=== PATIENT | female | born 1960 | race Two or more races ===

== ENCOUNTER 2024-04-24 09:02 | Outpatient (AMB) | payer MEDICAID, SELFPAY ==
[2024-04-24 09:19] VITALS: BP 111/75; PULSE 74; RESP 18; TEMP 36.5; O2SAT 98; BMI 22.6
--- NOTE | 2024-04-24 09:19 | ORTHONT_ITS ---
Vital signs 04/24/24 09:19 Height 1.6 m Height Method Stated Weight 58.088 kg Weight Measurement Method Standing Scale BMI 22.6 BP 111/75 Blood Pressure Source Automatic Cuff Blood Pressure Location Right Upper Arm Position Sitting Respiration 18 Pulse 74 Pulse Source Monitor Temp 97.7 F Temp Source Temporal Artery Scan Pulse Oximetry (%) 98 Oxygen Delivery Method Room Air Med/Allergies Allergies & Medications Allergies No Known Drug Allergies Allergy (Verified 04/24/24 09:20) Medication Reconciliation Unobtainable 04/24/24 [History Confirmed 04/24/24] Subjective Visit Visit for: new patient, hip and knee Immunization / Flu Flu Vaccine in the Last 12 Months: No Flu Vaccine Exclusion Criteria: Refused by Patient History of Present Illness Chief complaint: HIP AND KNEE PAIN Patient is a pleasant 63-year-old female with bilateral knee pain. She had a history of a left total knee replacement 5 years ago. On the right she has right knee arthritis. She has had 3 injections in the past physical therapy, and ibuprofen. She is hesitant to get a right total knee replacement as her left side is still bothering her on the lateral aspect of her knee. The surgery was done by Dr. Freeman Personal History Occupation: RETIRED Red flag PMH: none Pain Pain level (0-10): 10 Pain duration: ALL DAY Pain location: inside (medial), outside (lateral), anterior and posterior Pain quality: sharp, dull and aching Pain timing: increases with activity Associated signs & symptoms: weakness Ambulatory data Ambulatory device: cane Treatments Improvement with previous injections: No Improvement with PT: No Improvement with NSAIDS: n/a Review of Systems Review of Systems: All systems negative unless otherwise noted in HPI. Exam Exam Patient is in no acute distress and is cooperative with the examination today. Patient has a normal mood and affect. Breathing is nonlabored. In no respiratory distress. Bilateral extremities were evaluated and demonstrates sensation intact to light touch. Palpable pedal pulses are present. No significant edema is present. Left knee is tender to palpation medially. She has left knee incision is clean dry intact. There is no pain with varus valgus stress today feels stable. R umbetro of motion is poor and is between 10 to 90 degrees Right knee is tender to palpation medially and laterally. Range of motion is 0 to 95 degrees Assessment and Plan Problem List (1) Arthritis of right knee: Status: Acute Plan: Patient is a 63-year-old female with right knee pain and right knee arthritis. She also has a painful left total knee replacement. I will start by getting x- rays and we can go from there. She does not want injections at this time. Office Procedures GNS Level of Care Nursing/Assessment Patient Status: Initial/New Patient Nursing Assessment/Reassesment: Medication Reconciliation, Update PMH in EMR and Vital Signs Coordination of Care: Complex Care and Chronic Disease 1-5, Education Complex Pt/Fam, Consent,records obtained, informed consent, Results/Orders obtained and Staff clarify orders Special Needs: Language special needs New Patient Charge New Patient Point Assignment: [id number] New Patient Point Charge: SOAP SLABBER Level 3 ([id number]) Past Medical History Past Medical History Have you ever been diagnosed with any of the following: Respiratory Problems Smoking: No Smoking Exposure: No
== END 2024-04-24 09:51 | disposition home or self-care (01) ==
LOC: HODSRG 09:02
PROVIDERS: PCP Family Medicine; Referring Provider Family Medicine; Supervising Provider Orthopaedic Surgery Adult Reconstructive Orthopaedic Surgery; Visit Provider Orthopaedic Surgery Adult Reconstructive Orthopaedic Surgery
DX: M17.11 Unilateral primary osteoarthritis, right knee (principal); M25.561 Pain in right knee; T84.84XD Pain due to internal orthopedic prosthetic devices, implants and grafts, subsequent encounter; Y84.9 Medical procedure, unspecified as the cause of abnormal reaction of the patient, or of later complication, without mention of misadventure at the time of the procedure
CPT/HCPCS: 99203; G0463

== ENCOUNTER 2024-05-25 09:35 | Outpatient (AMB) | payer MEDICAID, SELFPAY ==
[2024-05-25 10:06] VITALS: BP 150/89; PULSE 67; RESP 18; TEMP 36.6; O2SAT 98; BMI 23.0
--- NOTE | 2024-05-25 10:06 | PD.ORTHCLVIS ---
Vital signs 05/25/24 10:06 Height 1.6 m Height Method Stated Weight 58.995 kg Weight Measurement Method Standing Scale BMI 23.0 BP 150/89 H Blood Pressure Source Automatic Cuff Blood Pressure Location Right Upper Arm Position Sitting Respiration 18 Pulse 67 Pulse Source Monitor Temp 97.9 F Temp Source Temporal Artery Scan Pulse Oximetry (%) 98 Oxygen Delivery Method Room Air Med/Allergies Allergies & Medications Allergies No Known Drug Allergies Allergy (Verified 05/25/24 10:08) Medication Reconciliation Unobtainable 04/24/24 [History Confirmed 05/25/24] Subjective Visit Visit for: follow up visit, knee and x-rays Immunization / Flu Flu Vaccine in the Last 12 Months: Yes Flu Vaccine Exclusion Criteria: No Exclusion Criteria History of Present Illness Chief complaint: F/U XRAYS Patient is a pleasant 63-year-old female with bilateral knee pain. She had a history of a left total knee replacement 5 years ago. On the right she has right knee arthritis. She has had 3 injections in the past physical therapy, and ibuprofen. She is hesitant to get a right total knee replacement as her left side is still bothering her on the lateral aspect of her knee. The surgery was done by Dr. Freeman. For her left knee, she reports that significant instability. The knee replacement was done in 2018. The left knee bothers her more than the right. She had a right knee injection recently Personal History Occupation: RETIRED Red flag PMH: none Pain Pain level (0-10): 10 Pain duration: CONSTANT Pain location: inside (medial), outside (lateral), anterior and posterior Pain quality: sharp, dull and aching Pain timing: increases with activity Associated signs & symptoms: numbness, weakness and stiffness Ambulatory data Ambulatory device: none Treatments Improvement with previous injections: No Improvement with PT: No Improvement with NSAIDS: n/a Review of Systems Review of Systems: All systems negative unless otherwise noted in HPI. Exam Exam Patient is in no acute distress and is cooperative with the examination today. Patient has a normal mood and affect. Breathing is nonlabored. In no respiratory distress. Bilateral extremities were evaluated and demonstrates sensation intact to light touch. Palpable pedal pulses are present. No significant edema is present. Left knee is tender to palpation medially. She has left knee incision is clean dry intact. . Range of motion is poor and is between 10 to 90 degrees. There is greater than 5 mm of instability in the varus valgus plane. There is AP instability as well Right knee is tender to palpation medially and laterally. Range of motion is 0 to 95 degrees X-rays were personally reviewed by me today. This demonstrates Moderate right knee arthritis and joint space narrowing. For the left knee, there is a attune total knee replacement. There appears to be a radiolucent line on the medial aspect of the tibial baseplate. It is not circumferential. I cannot see this as well on the lateral view but is very apparent on the AP view. Assessment and Plan Problem List (1) Loosening of prosthesis of left total knee replacement: Status: Acute Plan: Patient is a 63-year-old female with a left knee pain and loosening of the left total knee replacement. There is also instability. She has right knee arthritis of moderate severity that we recommend continued conservative treatment. He had an injection 1 month ago and we will schedule for her an injection in 2 months. We discussed revision left total knee replacement due to instability and loosening of the left knee. She wants to think about this. We discussed the risk and benefits of this. Office Procedures GNS Level of Care Nursing/Assessment Patient Status: Established Patient Nursing Assessment/Reassesment: Medication Reconciliation, Update PMH in EMR and Vital Signs Coordination of Care: Complex Care and Chronic Disease 1-5, Education Complex Pt/Fam, Consent,records obtained, informed consent, Results/Orders obtained and Staff clarify orders Special Needs: Language special needs Established Patient Charge Established Patient Point Assignment: 95 Established Patient Point Charge: EP Level 3 (80-115) Past Medical History Past Medical History Have you ever been diagnosed with any of the following: Respiratory Problems Smoking: No Smoking Exposure: No
== END 2024-05-25 10:33 | disposition home or self-care (01) ==
LOC: HODSRG 09:35
PROVIDERS: PCP Family Medicine; Referring Provider Family Medicine; Supervising Provider Orthopaedic Surgery Adult Reconstructive Orthopaedic Surgery; Visit Provider Orthopaedic Surgery Adult Reconstructive Orthopaedic Surgery
DX: T84.033D Mechanical loosening of internal left knee prosthetic joint, subsequent encounter (principal); Y84.9 Medical procedure, unspecified as the cause of abnormal reaction of the patient, or of later complication, without mention of misadventure at the time of the procedure; M25.562 Pain in left knee; M23.52 Chronic instability of knee, left knee; M17.11 Unilateral primary osteoarthritis, right knee
CPT/HCPCS: 99213; G0463

== ENCOUNTER 2024-09-04 09:06 | Outpatient (AMB) | payer MEDICAID, SELFPAY ==
--- NOTE | 2024-09-04 09:53 | ORTHONT_ITS ---
Vital signs 09/04/24 09:55 Height 1.6 m Height Method Stated Weight 58.74 kg Weight Measurement Method Standing Scale BMI 22.9 BP 111/73 Blood Pressure Source Automatic Cuff Blood Pressure Location Left Upper Arm Position Sitting Respiration 18 Pulse 68 Pulse Source Monitor Temp 97.5 F Temp Source Temporal Artery Scan Pulse Oximetry (%) 98 Oxygen Delivery Method Room Air Med/Allergies Allergies & Medications Allergies No Known Drug Allergies Allergy (Verified 09/04/24 09:56) Medication Reconciliation meloxicam 7.5 mg tablet 7.5 mg PO QDAY #45 tabs 09/04/24 [Rx] Exam Exam Patient is in no acute distress and is cooperative with the examination today. Patient has a normal mood and affect. Breathing is nonlabored. In no respiratory distress. Bilateral extremities were evaluated and demonstrates sensation intact to light touch. Palpable pedal pulses are present. No significant edema is present. Left knee is tender to palpation medially. She has left knee incision is clean dry intact. . Range of motion is poor and is between 10 to 90 degrees. There is greater than 5 mm of instability in the varus valgus plane. There is AP instability as well Right knee is tender to palpation medially and laterally. Range of motion is 0 to 95 degrees X-rays were personally reviewed by me today. This demonstrates Moderate right knee arthritis and joint space narrowing. For the left knee, there is a attune total knee replacement. There appears to be a radiolucent line on the medial aspect of the tibial baseplate. It is not circumferential. I cannot see this as well on the lateral view but is very apparent on the AP view. Assessment and Plan Problem List (1) Loosening of prosthesis of left total knee replacement: Status: Acute Plan: Patient is a 63-year-old female with a left knee pain. She has right knee arthritis of moderate severity that we recommend continued conservative treatment. She had great relief with a right knee injection in the past and would like a right knee injection today. Recommend knee cortisone injection as patient would like to proceed with conservative treatment at this time. The risks and benefits of the procedure were reviewed with the patient and patient gave verbal consent to continue with the procedure. Procedure: performed by Dr. Barbosa Using sterile technique the Right knee was thoroughly prepped with alcohol, and approximately 1 cc of Kenalog 40 mg/mL and 4 cc of 1% lidocaine was injected without resistance into the medial tibial femoral joint space. The patient tolerated the procedure. Office Procedures GNS Level of Care Nursing/Assessment Patient Status: Established Patient Nursing Assessment/Reassesment: Medication Reconciliation, Update PMH in EMR and Vital Signs Coordination of Care: Complex Care and Chronic Disease 1-5, Education Complex Pt/Fam, Consent,records obtained, informed consent, Results/Orders obtained and Staff clarify orders Established Patient Charge Established Patient Point Assignment: 95 Established Patient Point Charge: EP Level 3 (80-115) Surgical Proc/IM SQ injection Major Surgical Procedure: Yes (KNEE INJECTION) Medication Given Medication Given Medication Given: Yes Documented Dose Given: 4 Route: Infiitration Medication Given Medication Given Medication Given: Yes Documented Dose Given: 1 Route: Infiitration Office Meds Xylocaine 10 mg/mL (1 %) injection solution Performing Provider: Isidro Barbosa MD Performing Location: [facility] Administered by: Isidro Barbosa MD on 09/04/24 15:50 Dose Route Admin Location Dispensed Lot Number Expiration Date [facility] Product Tester Fiberg[employer] 20 mL Infiltration 20 mL [id number] 12/18/27 96298-038-03 [facility] triamcinolone acetonide 40 mg/mL suspension for injection Performing Provider: Isidro Barbosa MD Performing Location: [facility] Administered by: Isidro Barbosa MD on 09/04/24 15:50 Dose Route Admin Location Dispensed Lot Number Expiration Date [facility] Product Tester Fiberglass 40 mg intra-articular KNEE 1 mL [id number] 04/18/26 6537-2190-35 [facility] [place] Intake Visit Data Collection New Patient or Established: Established Patient (seen at [facility] within 3 years) Reason for Visit:: BILATERAL KNEE PAIN Seen by Clinical Staff ONLY (RN/MA): No Inspector Precision Required: Yes PCP or OBGYN visit in last 3 months: Yes Hx Now: No Do You Feel Safe at Home: Yes Authorities Contacted: N/A Questionairres Past Medical History Past Medical History Have you ever been diagnosed with any of the following: Respiratory Problems Smoking: No Smoking Exposure: No Subjective Visit Visit for: follow up visit and knee Immunization / Flu Flu Vaccine in the Last 12 Months: No Flu Vaccine Exclusion Criteria: No Exclusion Criteria History of Present Illness Chief complaint: bilateral knee pain Patient is a pleasant 63-year-old female with bilateral knee pain. She had a history of a left total knee replacement 5 years ago. On the right she has right knee arthritis. She has had 3 injections in the past. She is hesitant to get a right total knee replacement as her left side is still bothering her on the lateral aspect of her knee. The surgery was done by Dr. Freeman. For her left knee, she reports significant instability. The knee replacement was done in 2018. The left knee bothers her more than the right. We will rule out infection with ESR and CRP values as well Pain Pain level (0-10): 7 Pain duration: constant Pain location: inside (medial), outside (lateral) and anterior Pain quality: dull and aching Pain timing: increases with activity and stairs Associated signs & symptoms: weakness Ambulatory data Ambulatory device: none Treatments Improvement with previous injections: No Improvement with PT: No Improvement with NSAIDS: no Review of Systems Review of Systems: All systems negative unless otherwise noted in HPI.
[2024-09-04 09:55] VITALS: BP 111/73; PULSE 68; RESP 18; TEMP 36.4; O2SAT 98; BMI 22.9
--- NOTE | 2024-09-04 10:05 | XR_ITS ---
Examination: Bilateral knees single view AP lateral axial right knee 3 views TECHNIQUE: Bilateral AP knees standing single view Standing AP knee, flexion, right Standing lateral axial right knee 2 views total 4 views Exam date and time: September 04, 2024 1018 hours INDICATIONS: Right knee pain one year. FINDINGS: Significant osteopenia Moderate narrowing medial joint space Moderate narrowing lateral joint space Moderate osteoarthritis patellofemoral joint Total left knee arthroplasty with satisfactory alignment IMPRESSION: Moderate right knee tricompartment osteoarthritis
== END 2024-09-04 10:26 | disposition home or self-care (01) ==
LOC: HODSRG 09:06
PROVIDERS: Supervising Provider Orthopaedic Surgery Adult Reconstructive Orthopaedic Surgery; Visit Provider Orthopaedic Surgery Adult Reconstructive Orthopaedic Surgery
DX: M17.11 Unilateral primary osteoarthritis, right knee (principal); T84.033A Mechanical loosening of internal left knee prosthetic joint, initial encounter; X58.XXXA Exposure to other specified factors, initial encounter; Z96.652 Presence of left artificial knee joint
CPT/HCPCS: 20610; 73564; 99213; J3301; J3490; G0463

== ENCOUNTER 2024-12-06 09:02 | Outpatient (AMB) | payer MEDICAID, SELFPAY ==
[2024-12-06 09:48] VITALS: BP 127/79; PULSE 70; RESP 19; TEMP 36.6; O2SAT 100; BMI 23.6
--- NOTE | 2024-12-06 09:48 | PD.ORTHCLVIS ---
Vital signs 12/06/24 09:48 Height 1.6 m Height Method Stated Weight 60.47 kg Weight Measurement Method Standing Scale BMI 23.6 BP 127/79 Blood Pressure Source Automatic Cuff Blood Pressure Location Left Upper Arm Position Sitting Respiration 19 Pulse 70 Pulse Source Monitor Temp 97.8 F Temp Source Temporal Artery Scan Pulse Oximetry (%) 100 Oxygen Delivery Method Room Air Med/Allergies Allergies & Medications Allergies No Known Drug Allergies Allergy (Verified 12/06/24 09:48) Medication Reconciliation meloxicam 7.5 mg tablet 7.5 mg PO QDAY #45 tabs 09/04/24 [Rx Confirmed 12/06/24] Exam Exam Patient is in no acute distress and is cooperative with the examination today. Patient has a normal mood and affect. Breathing is nonlabored. In no respiratory distress. Bilateral extremities were evaluated and demonstrates sensation intact to light touch. Palpable pedal pulses are present. No significant edema is present. Left knee is tender to palpation medially. She has left knee incision is clean dry intact. . Range of motion is poor and is between 10 to 90 degrees. There is greater than 5 mm of instability in the varus valgus plane. There is AP instability as well Right knee is tender to palpation medially and laterally. Range of motion is 0 to 95 degrees X-rays were personally reviewed by me today. This demonstrates Moderate right knee arthritis and joint space narrowing. For the left knee, there is a attune total knee replacement. There appears to be a radiolucent line on the medial aspect of the tibial baseplate. It is not circumferential. I cannot see this as well on the lateral view but is very apparent on the AP view. Assessment and Plan Problem List (1) Loosening of prosthesis of left total knee replacement: Status: Acute Plan: Patient is a 63-year-old female with a left knee pain. She has right knee arthritis of moderate severity that we recommend continued conservative treatment. She had great relief with a right knee injection in the past and would like a right knee injection today. We will repeat her esr and crp Recommend knee cortisone injection as patient would like to proceed with conservative treatment at this time. The risks and benefits of the procedure were reviewed with the patient and patient gave verbal consent to continue with the procedure. Procedure: performed by Dr. Barbosa Using sterile technique the Right knee was thoroughly prepped with alcohol, and approximately 1 cc of Kenalog 40 mg/mL and 4 cc of 1% lidocaine was injected without resistance into the medial tibial femoral joint space. The patient tolerated the procedure. Office Procedures GNS Level of Care Nursing/Assessment Patient Status: Established Patient Nursing Assessment/Reassesment: Medication Reconciliation, Update PMH in EMR and Vital Signs Coordination of Care: Complex Care and Chronic Disease 1-5, Education Complex Pt/Fam, Consent,records obtained, informed consent, Results/Orders obtained and Staff clarify orders Established Patient Charge Established Patient Point Assignment: 95 Established Patient Point Charge: EP Level 3 (80-115) Surgical Proc/IM SQ injection Major Surgical Procedure: Yes (KNEE INJECTION) Medication Given Medication Given Medication Given: Yes Documented Dose Given: 4 Route: Infiitration Medication Given Medication Given Medication Given: Yes Documented Dose Given: 1 Route: Infiitration Office Meds Xylocaine 10 mg/mL (1 %) injection solution Performing Provider: Isidro Barbosa MD Performing Location: [facility] Administered by: Isidro Barbosa MD on 12/06/24 15:42 Dose Route Admin Location Dispensed Lot Number Expiration Date [facility] Sql [employer] 20 mL Infiltration 20 mL [id number] 10/18/27 42626-499-[facility] triamcinolone acetonide 40 mg/mL suspension for injection Performing Provider: Isidro Barbosa MD Performing Location: [facility] Administered by: Isidro Barbosa MD on 12/06/24 15:42 Dose Route Admin Location Dispensed Lot Number Expiration Date [facility] [employer] 40 mg intra-articular KNEE 1 mL [id number] 01/16/26 15753-922-06 [facility] [place] Intake Visit Data Collection New Patient or Established: Established Patient (seen at [facility] within 3 years) Reason for Visit:: F/U KNEE R INJ Seen by Clinical Staff ONLY (RN/MA): No Crane Rigger Required: Yes PCP or OBGYN visit in last 3 months: Yes Hx Now: No Do You Feel Safe at Home: Yes Authorities Contacted: N/A Questionairres Past Medical History Past Medical History Have you ever been diagnosed with any of the following: Respiratory Problems Smoking: No Smoking Exposure: No Subjective Visit Visit for: follow up visit, knee and injections Immunization / Flu Flu Vaccine in the Last 12 Months: No Flu Vaccine Exclusion Criteria: No Exclusion Criteria History of Present Illness Chief complaint: bilateral knee pain Patient is a pleasant 63-year-old female with bilateral knee pain. She had a history of a left total knee replacement 5 years ago. On the right she has right knee arthritis. She has had 3 injections in the past. She is hesitant to get a right total knee replacement as her left side is still bothering her on the lateral aspect of her knee. The surgery was done by Dr. Freeman. For her left knee, she reports significant instability. The knee replacement was done in 2018. The left knee bothers her more than the right. We will rule out infection with ESR and CRP values as well. We cannot track this down Pain Pain level (0-10): 8 Pain duration: ON AND OFF Pain location: inside (medial) and anterior Pain quality: dull and aching Pain timing: increases with activity Associated signs & symptoms: none Ambulatory data Ambulatory device: none Treatments Number of previous injections: 1 Improvement with previous injections: Yes Improvement with PT: No Improvement with NSAIDS: no Review of Systems Review of Systems: All systems negative unless otherwise noted in HPI.
--- NOTE | 2024-12-06 09:49 | XR_ITS ---
Examination: Bilateral knees 2 views Right lateral knee left lateral knee 2 views Bilateral axial knees single view TECHNIQUE: Bilateral AP knees standing single view, bilateral PA knees standing single view flexion Standing right lateral knee left lateral knee 2 views Bilateral axial knees single view total 5 views Date and time: 08/08/2024 1018 hours program indications: Knee pain months FINDINGS: Moderate osteopenia Total left knee arthroplasty. Satisfactory alignment No findings of loosening of the prosthetic components Moderate narrowing medial lateral and right patellofemoral joints No right knee fractures IMPRESSION: Moderate narrowing medial lateral and right patellofemoral joints
== END 2024-12-06 10:06 | disposition home or self-care (01) ==
LOC: HODSRG 09:02
PROVIDERS: Supervising Provider Orthopaedic Surgery Adult Reconstructive Orthopaedic Surgery; Visit Provider Orthopaedic Surgery Adult Reconstructive Orthopaedic Surgery
DX: M17.11 Unilateral primary osteoarthritis, right knee (principal); T84.033D Mechanical loosening of internal left knee prosthetic joint, subsequent encounter; M25.562 Pain in left knee
CPT/HCPCS: 20610; 73564; 99213; J3301; J3490; G0463

== ENCOUNTER 2025-02-21 09:20 | Outpatient (AMB) | payer MEDICAID, SELFPAY ==
[2025-02-21 09:40] VITALS: BP 144/78; PULSE 69; RESP 18; TEMP 36.2; O2SAT 98; BMI 24.3
--- NOTE | 2025-02-21 09:40 | ORTHONT_ITS ---
Vital signs 02/21/25 09:40 Height 1.6 m Height Method Stated Weight 62.397 kg Weight Measurement Method Standing Scale BMI 24.3 BP 144/78 H Blood Pressure Source Automatic Cuff Blood Pressure Location Left Upper Arm Position Sitting Respiration 18 Pulse 69 Pulse Source Monitor Temp 97.2 F Temp Source Temporal Artery Scan Pulse Oximetry (%) 98 Oxygen Delivery Method Room Air Med/Allergies Allergies & Medications Allergies No Known Drug Allergies Allergy (Verified 02/21/25 09:40) Medication Reconciliation meloxicam 7.5 mg tablet 7.5 mg PO QDAY #45 tabs 09/04/24 [Rx Confirmed 02/21/25] Exam Exam Patient is in no acute distress and is cooperative with the examination today. Patient has a normal mood and affect. Breathing is nonlabored. In no respiratory distress. Bilateral extremities were evaluated and demonstrates sensation intact to light touch. Palpable pedal pulses are present. No significant edema is present. Left knee is tender to palpation medially. She has left knee incision is clean dry intact. . Range of motion is poor and is between 10 to 90 degrees. There is greater than 5 mm of instability in the varus valgus plane. There is AP instability as well Right knee is tender to palpation medially and laterally. Range of motion is 0 to 95 degrees X-rays were personally reviewed by me today. This demonstrates Moderate right knee arthritis and joint space narrowing. For the left knee, there is a attune total knee replacement. There appears to be a radiolucent line on the medial aspect of the tibial baseplate. It is not circumferential. I cannot see this as well on the lateral view but is very apparent on the AP view. Assessment and Plan Problem List (1) Arthritis of right knee: Status: Acute (2) Loosening of prosthesis of left total knee replacement: Status: Acute Plan: Patient is a 63-year-old female with a left knee pain. She has right knee arthritis of moderate severity that we recommend continued conservative treatment. She had great relief with a right knee injection in the past and would like a right knee injection today. Her repeat labs were normal. Recommend knee cortisone injection as patient would like to proceed with conservative treatment at this time. The risks and benefits of the procedure were reviewed with the patient and patient gave verbal consent to continue with the procedure. Procedure: performed by Dr. Barbosa Using sterile technique the Right knee was thoroughly prepped with alcohol, and approximately 1 cc of Depo-Medrol 80mg/mL and 4 cc of 0.2% ropivacaine was injected without resistance into the medial tibial femoral joint space. The patient tolerated the procedure. Office Procedures GNS Level of Care Nursing/Assessment Patient Status: Established Patient Nursing Assessment/Reassesment: Medication Reconciliation, Update PMH in EMR and Vital Signs Coordination of Care: Complex Care and Chronic Disease 1-5, Education Complex Pt/Fam, Consent,records obtained, informed consent, Results/Orders obtained and Staff clarify orders Special Needs: Language special needs Established Patient Charge Established Patient Point Assignment: 95 Established Patient Point Charge: EP Level 3 (80-115) Surgical Proc/IM SQ injection Major Surgical Procedure: Yes (RIGHT KNEE INJECTION) Medication Given Medication Given Medication Given: Yes Documented Dose Given: 1 Route: Infiitration Medication Given Medication Given Medication Given: Yes Documented Dose Given: 4 Route: Infiitration Office Meds methylprednisolone acetate 80 mg/mL suspension for injection Performing Provider: Isidro Barbosa MD Performing Location: [facility] Administered by: Isidro Barbosa MD on 02/21/25 12:10 Dose Route Admin Location Dispensed Lot Number Expiration Date Pack age [facility] [employer] 80 mg intra-articular 1 mL [id number] 11/16/26 [address]-2 [id number] [employer] ropivacaine (PF) 2 mg/mL (0.2 %) injection solution Performing Provider: Isidro Barbosa MD Performing Location: [facility] Administered by: Isidro Barbosa MD on 02/21/25 12:10 Dose Route Admin Location Dispensed Lot Number Expiration Date Pack age [facility] [employer] 20 mL Infiltration 20 mL [id number] 07/19/27 52838-862-06 [id number] [facility] Intake Visit Data Collection New Patient or Established: Established Patient (seen at [facility] within 3 years) Reason for Visit:: F/U KNEE R INJ Seen by Clinical Staff ONLY (RN/MA): No Tag Press Operator Required: Yes PCP or OBGYN visit in last 3 months: Yes Hx Now: No Do You Feel Safe at Home: Yes Authorities Contacted: N/A Questionairres Past Medical History Past Medical History Have you ever been diagnosed with any of the following: Respiratory Problems Smoking: No Smoking Exposure: No Subjective Visit Visit for: follow up visit, knee and injections Immunization / Flu Flu Vaccine in the Last 12 Months: No Flu Vaccine Exclusion Criteria: No Exclusion Criteria History of Present Illness Chief complaint: bilateral knee pain Patient is a pleasant 63-year-old female with bilateral knee pain. She had a history of a left total knee replacement 5 years ago. On the right she has right knee arthritis. She has had 3 injections in the past. She is hesitant to get a right total knee replacement as her left side is still bothering her on the lateral aspect of her knee. The surgery was done by Dr. Freeman. For her left knee, she reports significant instability. The knee replacement was done in 2018. The left knee bothers her more than the right. We will rule out infection with ESR and CRP values as well. We cannot track this down Pain Pain level (0-10): 8 Pain duration: ON AND OFF Pain location: inside (medial) and anterior Pain quality: dull and aching Pain timing: increases with activity Associated signs & symptoms: none Ambulatory data Ambulatory device: none Treatments Number of previous injections: 1 Improvement with previous injections: Yes Improvement with PT: No Improvement with NSAIDS: no Review of Systems Review of Systems: All systems negative unless otherwise noted in HPI.
== END 2025-02-21 10:03 | disposition home or self-care (01) ==
LOC: HODSRG 09:20
PROVIDERS: Supervising Provider Orthopaedic Surgery Adult Reconstructive Orthopaedic Surgery; Visit Provider Orthopaedic Surgery Adult Reconstructive Orthopaedic Surgery
DX: M17.11 Unilateral primary osteoarthritis, right knee (principal); T84.033D Mechanical loosening of internal left knee prosthetic joint, subsequent encounter; M25.562 Pain in left knee; M25.561 Pain in right knee
CPT/HCPCS: 20610; 99213; J1010; J2795; G0463